=== PATIENT | male | born 1990 | race Caucasian/White ===

== ENCOUNTER → 2016-07-02 | Outpatient (CLI) | payer MEDICAID ==
[~2016-07-02] MED LIST: FLUO40CA9 PO; Hydrocodone PO; QUET300T PO; TRAM50TA2 PO
== END | disposition home or self-care (01) ==
LOC: STAR 14:46
PROVIDERS: ATTEND Orthopaedic Surgery
DX: Z02.9 Encounter for administrative examinations, unspecified (principal)

== ENCOUNTER 2016-07-06 08:44 | Inpatient (IN) | payer MEDICAID ==
[~2016-07-06] VITALS: Ht 177.8 cm; Wt 59.7 kg
[~2016-07-06 08:44] MED LIST changes: +LIDOCAINE 1%-EPI 1:100K, 50ML ONE; +ROPIvacaine/PF 0.5%, 30 ML ONE
[2016-07-06] MEDS ORDERED: LACTATED RINGERS 1,000 ML IV SCH (08:57)
[2016-07-06 08:58] VITALS: BP 140/97
[2016-07-06] MEDS ORDERED: LIDOCAINE 1%, 2ML SQ PRN (09:00)
[2016-07-06] MEDS ORDERED: FENTANYL PF 250 MCG/5ML ONE (09:02)
[2016-07-06] MEDS ORDERED: MIDAZOLAM 1 MG/ML, 2ML ONE (09:02)
[2016-07-06] MEDS ORDERED: BUPIVACAINE/PF-EPI 0.25% 1:200K ONE (09:02)
[2016-07-06] MEDS ORDERED: HYDR-3240 PO (09:02)
[2016-07-06] MEDS ORDERED: PROPOFOL 10 MG/ML, 20ML ONE (09:29)
[2016-07-06] MEDS ORDERED: EPHEDRINE 50 MG/ML, 1ML ONE (09:29)
[2016-07-06] MEDS ORDERED: METOCLOPRAMIDE 5 MG/ML, 2ML ONE (09:29)
[2016-07-06] MEDS ORDERED: ONDANSETRON 2MG/ML, 2ML ONE (09:29)
[2016-07-06] MEDS ORDERED: DEXAMETHASONE 4 MG/ML, 1ML ONE (09:29)
[2016-07-06] MEDS ORDERED: CEFAZOLIN 1,000 MG ONE (09:29)
[2016-07-06] MEDS ORDERED: KETOROLAC 30 MG/1 ML ONE (09:29)
[2016-07-06] MEDS ORDERED: ACETAMINOPHEN 325 MG TABLET PO PRN ×2 (10:00→15:30)
[2016-07-06] MEDS ORDERED: LABETALOL 5MG/ML, 20ML IV PRN (10:00)
[2016-07-06] MEDS ORDERED: hydrALAzine 20 MG/ML, 1ML IV PRN (10:00)
[2016-07-06] MEDS ORDERED: OXYcodone 5 MG/5 ML ORAL.SOL UDC PO PRN (10:00)
[2016-07-06] MEDS ORDERED: PROMETHAZINE 25 MG/ML, 1ML IV PRN (10:00)
[2016-07-06] MEDS ORDERED: MIDAZOLAM 1 MG/ML, 2ML IV PRN (10:00)
[2016-07-06] MEDS ORDERED: ONDANSETRON 2MG/ML, 2ML IVPush PRN (10:00)
[2016-07-06] MEDS ORDERED: MEPERIDINE/PF 25MG/0.5ML IVPush PRN (10:00)
[2016-07-06] MEDS ORDERED: HYDROmorphone 2 MG/ML, 1ML ONE ×3 (10:06→13:39)
[2016-07-06] MEDS ORDERED: FENTANYL PF 100 MCG/2ML ONE (12:52)
[2016-07-06] MEDS ORDERED: ACETAMINOPHEN 650 MG/20.3 ML UDC ONE (12:52)
[2016-07-06] MEDS ORDERED: OXYcodone 5 MG/5 ML ORAL.SOL UDC ONE (12:52)
[2016-07-06] MEDS: FENTANYL PF 100 MCG/2ML IV PRN ×2 (13:00→13:13)
[2016-07-06] MEDS: HYDROmorphone 1 MG/ML, 1ML IV PRN ×4 (13:17→14:04)
[2016-07-06] MEDS ORDERED: SENNA/DOCUSATE TABLET PO PRN (15:00)
[2016-07-06] MEDS ORDERED: BISACODYL 10 MG SUPP PR PRN (15:00)
[2016-07-06] MEDS ORDERED: MAGNESIUM HYDROXIDE 8%, 30ML UDC PO PRN (15:00)
[2016-07-06] MEDS ORDERED: HYDROcodone/APAP 10/325 MG TABLET PO PRN (15:30)
[2016-07-06] MEDS ORDERED: LORazepam 2 MG/ML, 1ML IV PRN (15:30)
[2016-07-06] MEDS ORDERED: PROMETHAZINE 25 MG/ML, 1ML IM PRN (15:30)
[2016-07-06] MEDS ORDERED: ONDANSETRON 2MG/ML, 2ML IV PRN (15:30)
[2016-07-06] MEDS ORDERED: LORazepam 1MG TABLET PO PRN (15:30)
[2016-07-06] MEDS ORDERED: DIPHENHYDRAMINE 25 MG CAPSULE PO PRN (15:30)
[2016-07-06] MEDS: DIAZEPAM 5 MG TABLET PO PRN ×2 (16:03→20:09)
[2016-07-06] MEDS: OXYcodone/APAP 5/325MG TABLET PO PRN ×2 (17:13→21:54)
[2016-07-06] MEDS: CEFAZOLIN PMX 1GM/50ML 50 ML IVPB SCH (18:20)
[2016-07-06] MEDS: D5%-LACTATED RINGERS 1,000 ML IV SCH (18:21)
[2016-07-06 19:14] VITALS: BP 127/77
[2016-07-06] MEDS: ASPIRIN 325 MG TABLET PO SCH (20:09)
[2016-07-06] MEDS: DOCUSATE 100 MG CAPSULE PO SCH (20:13)
[2016-07-06] MEDS: SODIUM CHLORIDE FLUSH 10ML SYR IVF SCH (20:15)
[2016-07-06 23:17] VITALS: BP 122/69
[2016-07-06] MEDS: morphine SULFATE 10 MG/ML, 1ML IV PRN (23:32)
[2016-07-07] MEDS: DIAZEPAM 5 MG TABLET PO PRN ×2 (00:04→04:07)
[2016-07-07] MEDS: OXYcodone/APAP 5/325MG TABLET PO PRN ×2 (01:06→05:09)
[2016-07-07 01:21] VITALS: BP 123/72
[2016-07-07] MEDS: morphine SULFATE 10 MG/ML, 1ML IV PRN ×6 (02:30→17:19)
[2016-07-07] MEDS: CEFAZOLIN PMX 1GM/50ML 50 ML IVPB SCH (02:30)
[2016-07-07 04:36] VITALS: BP 136/89
[2016-07-07] MEDS: D5%-LACTATED RINGERS 1,000 ML IV SCH ×2 (06:12→11:30)
[2016-07-07] MEDS ORDERED: DIAZEPAM 5 MG TABLET PO PRN (07:00)
[2016-07-07] MEDS ORDERED: OXYcodone/APAP 10/325MG TABLET PO PRN (07:00)
[2016-07-07] MEDS: IBUPROFEN 200 MG TABLET PO SCH ×2 (07:31→17:19)
[2016-07-07] MEDS: CYCLOBENZAPRINE 10 MG TABLET PO PRN ×2 (07:31→17:19)
[2016-07-07] MEDS ORDERED: MORPHINE SULFATE 4 MG/ML, 1ML ONE ×2 (07:38→10:13)
[2016-07-07 08:24] VITALS: BP 144/96
[2016-07-07] MEDS: SODIUM CHLORIDE FLUSH 10ML SYR IVF SCH (09:00)
[2016-07-07] MEDS ORDERED: OXYcodone IR 5MG TABLET ONE (09:01)
[2016-07-07] MEDS: DOCUSATE 100 MG CAPSULE PO SCH (09:03)
[2016-07-07] MEDS: ASPIRIN 325 MG TABLET PO SCH (09:03)
[2016-07-07] MEDS ORDERED: OXYcodone IR 5MG TABLET PO SCH (11:00)
[2016-07-07] MEDS: OXYcodone IR 5MG TABLET PO SCH ×2 (13:16→17:10)
[2016-07-07 13:36] VITALS: BP 123/76
[2016-07-07 18:00] VITALS: BP 138/70
== END 2016-07-07 18:00 | disposition home or self-care (01) | DRG 489 ==
LOC: OUT 08:44 → 4NOR 14:34 → OUT 14:54
PROVIDERS: ADMIT Orthopaedic Surgery; ATTEND Orthopaedic Surgery
PROC: 0SQC4ZZ Repair Right Knee Joint, Percutaneous Endoscopic Approach (ICD-10-PCS; 2016-07-06)
PROC: 01N Peripheral Nervous System, Release (ICD-10-PCS; 2016-07-06)
PROC: 0MQN4ZZ Repair Right Knee Bursa and Ligament, Percutaneous Endoscopic Approach (ICD-10-PCS; principal; 2016-07-06 10:30)
DX: S83.511A Sprain of anterior cruciate ligament of right knee, initial encounter (principal); S83.521A Sprain of posterior cruciate ligament of right knee, initial encounter; M65.9 Synovitis and tenosynovitis, unspecified; S84.11XA Injury of peroneal nerve at lower leg level, right leg, initial encounter
CPT/HCPCS: 76000; C1713; J0690; J1100; J1170; J1885; J2250; J2405; J2704; J2795; J3010; C1762; J2270; J2765; J7120; J7121

== ENCOUNTER 2017-06-27 10:40 | Day surgery (SDC) | payer MEDICAID ==
[~2017-06-27] VITALS: Ht 177.8 cm; Wt 70.0 kg
[~2017-06-27 10:40] MED LIST changes: +BUPIVACAINE/PF 0.5% ONE; +HYDR-3240 PO; -LIDOCAINE 1%-EPI 1:100K, 50ML ONE; -ROPIvacaine/PF 0.5%, 30 ML ONE
[2017-06-27] MEDS ORDERED: LACTATED RINGERS 1,000 ML IV SCH (11:08)
[2017-06-27 11:28] VITALS: BP 111/72
[2017-06-27] MEDS ORDERED: HYDR50CA PO (11:34)
[2017-06-27] MEDS ORDERED: OXYC5CAP2 PO (11:34)
[2017-06-27] MEDS ORDERED: CEPH-368 PO (11:34)
[2017-06-27] MEDS ORDERED: MIDAZOLAM 1 MG/ML, 2ML ONE (11:42)
[2017-06-27] MEDS ORDERED: PROPOFOL 10 MG/ML, 20ML ONE (11:43)
[2017-06-27] MEDS ORDERED: CEFAZOLIN 1,000 MG ONE ×2 (11:43→11:44)
[2017-06-27] MEDS ORDERED: FENTANYL PF 250 MCG/5ML ONE (11:43)
[2017-06-27] MEDS ORDERED: SODIUM CHLORIDE 0.9% PF 10ML ONE (11:43)
[2017-06-27] MEDS ORDERED: OXYcodone 5 MG/5 ML ORAL.SOL UDC PO PRN (12:30)
[2017-06-27] MEDS ORDERED: PROMETHAZINE 25 MG/ML, 1ML IV PRN (12:30)
[2017-06-27] MEDS ORDERED: MEPERIDINE/PF 25MG/0.5ML IVPush PRN (12:30)
[2017-06-27] MEDS ORDERED: PROMETHAZINE 12.5 MG SUPP PR PRN (12:30)
[2017-06-27] MEDS ORDERED: HYDROmorphone 1 MG/ML, 1ML IV PRN (12:30)
[2017-06-27] MEDS ORDERED: morphine SULFATE 10 MG/ML, 1ML IV PRN (12:30)
[2017-06-27] MEDS ORDERED: ONDANSETRON 2MG/ML, 2ML IVPush PRN (12:30)
[2017-06-27] MEDS ORDERED: ACETAMINOPHEN 325 MG TABLET PO PRN (12:30)
[2017-06-27] MEDS ORDERED: OXYcodone 5 MG/5 ML ORAL.SOL UDC ONE (13:21)
[2017-06-27] MEDS ORDERED: ACETAMINOPHEN 650 MG/20.3 ML UDC ONE (13:21)
[2017-06-27] MEDS ORDERED: FENTANYL PF 100 MCG/2ML ONE (13:21)
[2017-06-27] MEDS: FENTANYL PF 100 MCG/2ML IV PRN ×2 (13:25→13:38)
== END 2017-06-27 15:10 ==
LOC: OUT 10:40
PROVIDERS: ATTEND Orthopaedic Surgery Foot and Ankle Surgery
DX: M20.41 Other hammer toe(s) (acquired), right foot (principal)
CPT/HCPCS: 28285; 73660; 76000; J0690; J2250; J2704; J3010; J3490; J7120

== ENCOUNTER 2018-05-31 02:11 | Emergency (ER) | payer SELFPAY ==
[~2018-05-31] VITALS: Ht 177.8 cm; Wt 65.1 kg
[~2018-05-31 02:11] MED LIST changes: -BUPIVACAINE/PF 0.5% ONE; +CEPH-368 PO; +CYCL5TAB PO; +HYDR50CA PO; +OLAN20TA3 PO; +OXYC5CAP2 PO; +SERT25TA3 PO
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
[2018-05-31] MEDS ORDERED: CLINDAMYCIN 300 MG CAPSULE PO ONE (03:00)
[2018-05-31] MEDS ORDERED: CLINDAMYCIN 300 MG CAPSULE ONE (03:04)
[2018-05-31 03:10] VITALS: BP 126/77
--- NOTE | 2018-05-31 03:13 | NUR ---
PT SITTING UP ON GURNEY, MEDICATED PER JUN, RIGHT LEG REDNESS MARKED, MONITORS IN PLACE, CALL LIGHT WITHIN REACH.
== END 2018-05-31 03:52 | disposition home or self-care (01) ==
LOC: ED 02:42
DX: L03.116 Cellulitis of left lower limb (principal); B35.0 Tinea barbae and tinea capitis; G89.29 Other chronic pain
CPT/HCPCS: 99283